=== PATIENT | female | born 1990 | race Caucasian/White ===

== ENCOUNTER 2017-05-17 05:50 | Emergency (ER) | payer MEDICAID ==
[2017-05-17] MEDS ORDERED: Acetaminophen 500 MG Tab PO ONE (06:05)
[2017-05-17] MEDS ORDERED: Ketorolac 30 MG/ML SDV IVPUSH ONE (06:05)
[2017-05-17] MEDS ORDERED: Sodium Chloride 0.9% 2.5 ML Syringe FLUSH PRN (06:05)
[2017-05-17] MEDS ORDERED: Sodium Chloride 0.9% 10 ML Syringe FLUSH PRN (06:05)
[2017-05-17] MEDS ORDERED: Sodium Chloride 0.9% 1,000 ML IV ONE (06:05)
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
[2017-05-17] MEDS ORDERED: cefTRIAXone 1 GM in Premix Bag 1 BAG IV ONE (06:40)
[2017-05-17 08:12] VITALS: BP 99/53
== END 2017-05-17 08:09 | disposition home or self-care (01) ==
LOC: MW.ED 05:50
DX: N39.0 Urinary tract infection, site not specified (principal); N12 Tubulo-interstitial nephritis, not specified as acute or chronic; T37.0X5A Adverse effect of sulfonamides, initial encounter; Z88.1 Allergy status to other antibiotic agents; Z79.899 Other long term (current) drug therapy; Z90.49 Acquired absence of other specified parts of digestive tract; Z98.890 Other specified postprocedural states
CPT/HCPCS: 36415; 80053; 81001; 83605; 85025; 87086; 96361; 96365; 96375; 99283; A9270; J0696; J1885; J7040; 99284

== ENCOUNTER 2017-11-19 08:15 | Day surgery (SDC) | payer MEDICAID ==
[2017-11-18 12:14] LABS: CHLORIDE,CL 104 mmol/L (98-110); SODIUM,NA 138 mmol/L (136-146)
[~2017-11-19 08:15] MED LIST: Lactated Ringers 1,000 ML IV SCH; Sodium Chloride 0.9% 10 ML Syringe FLUSH PRN; Sodium Chloride 0.9% 2.5 ML Syringe FLUSH PRN
[2017-11-19] MEDS ORDERED: Midazolam 1 MG/ML 2 ML SDV ONE (08:42)
[2017-11-19] MEDS ORDERED: Dexamethasone 4 MG/ML 5 ML MDV ONE (08:42)
[2017-11-19] MEDS ORDERED: Ondansetron 4 MG/2 ML SDV ONE (08:42)
[2017-11-19] MEDS ORDERED: diphenhydrAMINE 50 MG/ML SDV ONE (08:42)
[2017-11-19] MEDS ORDERED: Rocuronium 10 MG/ML 10 ML Syringe ONE (08:42)
[2017-11-19] MEDS ORDERED: Propofol 200 MG/20 ML SDV ONE (08:42)
[2017-11-19] MEDS ORDERED: fentaNYL 100 MCG/2 ML SDV ONE (08:42)
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
[2017-11-19] MEDS ORDERED: Octyl 2-Cyanoacrylate 1 Tube ONE (09:22)
[2017-11-19] MEDS ORDERED: HYDROmorphone 2 MG/ML SDV ONE (10:51)
[2017-11-19] MEDS ORDERED: Neostigmine Methylsulfate 1 MG/ML 5 ML Syringe ONE (11:06)
[2017-11-19] MEDS ORDERED: Glycopyrrolate 0.2 MG/ML SDV ONE (11:06)
[2017-11-19] MEDS ORDERED: Ketorolac 30 MG/ML SDV ONE (11:07)
[2017-11-19] MEDS ORDERED: Ketorolac 30 MG/ML SDV IVPUSH PRN (11:11)
[2017-11-19] MEDS ORDERED: Ketorolac 30 MG/ML SDV IVPUSH ONE (11:11)
[2017-11-19] MEDS ORDERED: Promethazine 25 MG/ML SDV IM PRN (11:11)
[2017-11-19] MEDS ORDERED: Morphine 4 MG/ML Syringe IVPUSH PRN (11:11)
[2017-11-19] MEDS ORDERED: Ondansetron 4 MG/2 ML SDV IVPUSH PRN (11:11)
[2017-11-19] MEDS ORDERED: Acetaminophen/oxyCODONE 325-5 MG Tab PO PRN ×2 (11:11)
[2017-11-19] MEDS ORDERED: Morphine 2 MG/ML Syringe IVPUSH PRN (11:11)
--- NOTE | 2017-11-19 11:16 | PCM.OPNOTE ---
- General Post-Op/Procedure Note Date of Surgery/Procedure: 11/19/17 Operative Procedure(s): Dignostic Laparoscopy, draning of R.ovarian cyst, and removal of IUD Pre Op Diagnosis: Pelvic pain Post-Op Diagnosis: Same Anesthesia Technique: General ET Tube Primary Surgeon: Justice Brown Intellectual Property Manager: Sue Crespo EBL in mLs: 50 Complications: None Condition: Good
--- NOTE | 2017-11-19 11:17 | PCM.DCSUM1 ---
Discharge Summary - Discharge Data Discharge Date: 11/19/17 Discharge Disposition: Home, Self-Care 01 Condition: Good - Patient Summary/Data Operative Procedure(s) Performed: Dignostic Laparoscopy, draning of R.ovarian cyst, and removal of IUD - Patient Instructions Diet: Usual Diet as Tolerated Activity: As Tolerated Driving: Do Not Drive Showering/Bathing: May Shower Wound/Incision Care: Keep Operative Site/Wound Site Clean and Dry Notify Provider of: Fever, Increased Pain - Discharge Plan Home Medications: Home Meds . [No Known Home Meds] 11/17/17 [History] - General Info Date of Service: 11/19/17 Functional Status: Reports: Pain Controlled - Review of Systems General: Reports: No Symptoms HEENT: Reports: No Symptoms Pulmonary: Reports: No Symptoms Cardiovascular: Reports: No Symptoms Gastrointestinal: Reports: No Symptoms Genitourinary: Reports: No Symptoms Musculoskeletal: Reports: No Symptoms Skin: Reports: No Symptoms Neurological: Reports: No Symptoms Psychiatric: Reports: No Symptoms - Patient Data Vitals - Most Recent: Last Vital Signs Temp 37.0 C 11/19/17 08:52 Pulse 60 11/19/17 08:52 Resp 16 11/19/17 08:59 BP 110/68 11/19/17 08:52 Pulse Ox 98 11/19/17 08:59 Weight - Most Recent: 73.028 kg Lab Results - Last 24 hrs: Laboratory Results - last 24 hr 11/18/17 11/18/17 11/18/17 Range/Units 11:44 11:44 11:44 WBC 4.44 (4.0-11.0) K/uL RBC 4.54 (4.30-5.90) M/uL Hgb 14.4 (12.0-16.0) g/dL Hct 42.2 (36.0-46.0) % MCV 93.0 (80.0-98.0) fL MCH 31.7 (27.0-32.0) pg MCHC 34.1 (31.0-37.0) g/dL RDW Std Deviation 42.4 (28.0-62.0) fl RDW Coeff of Brandy 13 (11.0-15.0) % Plt Count 201 (150-400) K/uL MPV 9.40 (7.40-12.00) fL Nucleated RBC % 0.0 /100WBC Nucleated RBCs # 0 K/uL Sodium 138 (136-146) mmol/L Potassium 4.5 (3.5-5.1) mmol/L Chloride 104 (98-110) mmol/L Carbon Dioxide 26 (21-31) mmol/L BUN 12 (6.0-23.0) mg/dL Creatinine 0.9 (0.6-1.5) mg/dL Est Cr Clr Drug Dosing 87.12 mL/min Estimated GFR (MDRD) > 60.0 ml/min Glucose 96 (60-110) mg/dL Calcium 9.3 (8.8-10.8) mg/dL HCG, Qual NEGATIVE (NEG) Blood Type Antibody Screen 11/18/17 Range/Units 11:44 WBC (4.0-11.0) K/uL RBC (4.30-5.90) M/uL Hgb (12.0-16.0) g/dL Hct (36.0-46.0) % MCV (80.0-98.0) fL MCH (27.0-32.0) pg MCHC (31.0-37.0) g/dL RDW Std Deviation (28.0-62.0) fl RDW Coeff of Brandy (11.0-15.0) % Plt Count (150-400) K/uL MPV (7.40-12.00) fL Nucleated RBC % /100WBC Nucleated RBCs # K/uL Sodium (136-146) mmol/L Potassium (3.5-5.1) mmol/L Chloride (98-110) mmol/L Carbon Dioxide (21-31) mmol/L BUN (6.0-23.0) mg/dL Creatinine (0.6-1.5) mg/dL Est Cr Clr Drug Dosing mL/min Estimated GFR (MDRD) ml/min Glucose (60-110) mg/dL Calcium (8.8-10.8) mg/dL HCG, Qual (NEG) Blood Type O POSITIVE Antibody Screen NEGATIVE Med Orders - Current: Current Medications Lactated Ringer's (Ringers, Lactated) 1,000 mls @ 500 mls/hr IV .BOLUS TED Last Admin: 11/19/17 08:42 Dose: 500 mls/hr Ketorolac Tromethamine (Toradol) 30 mg IVPUSH ONETIME ONE Stop: 11/19/17 11:12 Ketorolac Tromethamine (Toradol) 30 mg IVPUSH Q6H PRN PRN Reason: Pain (severe 7-10) Stop: 11/24/17 11:12 Morphine Sulfate (Morphine) 2 mg IVPUSH Q2H PRN PRN Reason: Pain (severe 7-10) Morphine Sulfate (Morphine) 4 mg IVPUSH Q2H PRN PRN Reason: Pain (severe 7-10) Ondansetron HCl (Zofran) 4 mg IVPUSH Q6H PRN PRN Reason: Nausea/Vomiting Oxycodone/Acetaminophen (Percocet 325-5 Mg) 1 tab PO Q4H PRN PRN Reason: Pain (moderate 4-6) Oxycodone/Acetaminophen (Percocet 325-5 Mg) 2 tab PO Q4H PRN PRN Reason: Pain (moderate 4-6) Promethazine HCl (Phenergan) 25 mg IM Q6H PRN PRN Reason: Nausea/Vomiting Sodium Chloride (Saline Flush) 10 ml FLUSH ASDIRECTED PRN PRN Reason: Keep Vein Open Sodium Chloride (Saline Flush) 2.5 ml FLUSH ASDIRECTED PRN PRN Reason: Keep Vein Open Discontinued Medications Dexamethasone (Dexamethasone) Confirm Administered Dose 20 mg .ROUTE .STK-MED ONE Stop: 11/19/17 08:43 Diphenhydramine HCl (Benadryl) Confirm Administered Dose 50 mg .ROUTE .STK-MED ONE Stop: 11/19/17 08:43 Fentanyl (Sublimaze) Confirm Administered Dose 200 mcg .ROUTE .STK-MED ONE Stop: 11/19/17 08:43 Glycopyrrolate (Robinul) Confirm Administered Dose 0.4 mg .ROUTE .STK-MED ONE Stop: 11/19/17 11:07 Hydromorphone HCl (Dilaudid) Confirm Administered Dose 2 mg .ROUTE .STK-MED ONE Stop: 11/19/17 10:52 Acetaminophen (Ofirmev) Confirm Administered Dose 100 mls @ as directed IV .STK- MED ONE Stop: 11/19/17 10:04 Ketorolac Tromethamine (Toradol) Confirm Administered Dose 30 mg .ROUTE .STK- MED ONE Stop: 11/19/17 11:08 Midazolam HCl (Versed 1 Mg/Ml) Confirm Administered Dose 2 mg .ROUTE .STK-MED ONE Stop: 11/19/17 08:43 Neostigmine Methylsulfate (Neostigmine) Confirm Administered Dose 5 mg .ROUTE .STK-MED ONE Stop: 11/19/17 11:07 Octyl Cyanoacrylate (Dermabond Advance) Confirm Administered Dose 1 applic .ROUTE .STK-MED ONE Stop: 11/19/17 09:23 Ondansetron HCl (Zofran) Confirm Administered Dose 4 mg .ROUTE .STK-MED ONE Stop: 11/19/17 08:43 Propofol (Diprivan 20 Ml) Confirm Administered Dose 200 mg .ROUTE .STK-MED ONE Stop: 11/19/17 08:43 Rocuronium [place] (Zemuron) Confirm Administered Dose 100 mg .ROUTE .STK-MED ONE Stop: 11/19/17 08:43 - Exam General: Reports: Alert, Oriented HEENT: Reports: Pupils Equal, Pupils Reactive, EOMI, Mucous Membr. Moist/[place] Neck: Reports: Supple Lungs: Reports: Clear to Auscultation, Normal Respiratory Effort Cardiovascular: Reports: Regular Rate, Regular Rhythm GI/Abdominal Exam: Normal Bowel Sounds, Soft, Non-Tender, No Organomegaly, No Distention, No Abnormal Bruit, No Mass, Pelvis Stable (Female) Exam: Normal External Exam, Normal Speculum Exam, Normal Bimanual Exam Rectal (Female) Exam: Normal Exam, Normal Rectal Tone Back Exam: Reports: Normal Inspection, Full Range of Motion Extremities: Normal Inspection, Normal Range of Motion, Non-Tender, No Pedal Edema, Normal Capillary Refill Skin: Reports: Warm, Dry, Intact Wound/Incisions: Reports: Healing Well Neurological: Reports: No New Focal Deficit Psy/Mental Status: Reports: Alert, Normal Affect, Normal Mood *Q Meaningful Use (DIS) - VTE *Q VTE Criteria *Q: - Stroke *Q Stroke Criteria *Q: - AMI *Q AMI Criteria *Q:
--- NOTE | 2017-11-19 12:09 | PCM.POSTAN ---
POST ANESTHESIA ASSESSMENT - MENTAL STATUS Mental Status: Alert, Oriented - RESPIRATORY Respiratory Status: Respiratory Rate WNL, Airway Patent, O2 Saturation Stable - CARDIOVASCULAR CV Status: Pulse Rate WNL, Blood Pressure Stable - GASTROINTESTINAL GI Status: No Symptoms - POST OP HYDRATION Hydration Status: Adequate & Stable
--- NOTE | 2017-11-19 12:10 | PCM48HPAN ---
Post Anesthesia Note - EVALUATION WITHIN 48HRS OF ANESTHETIC Vital Signs in Normal Range: Yes Patient Participated in Evaluation: Yes Respiratory Function Stable: Yes Airway Patent: Yes Cardiovascular Function Stable: Yes Hydration Status Stable: Yes Pain Control Satisfactory: Yes Nausea and Vomiting Control Satisfactory: Yes Mental Status Recovered: Yes
[2017-11-19 14:06] VITALS: BP 113/74
--- NOTE | 2017-11-19 17:35 | OR ---
SURGEON: Justice Brown MD DATE OF PROCEDURE: PREOPERATIVE DIAGNOSIS: Pelvic pain. POSTOPERATIVE DIAGNOSES: Pelvic pain plus right ovarian cyst. OPERATION PERFORMED: Multiple puncture, diagnostic laparoscopy, peritoneal lavage, and drainage of the right ovarian cyst and prior to that, removal of the IUD. PROCUREMENT ANALYST: ERICA Arredondo ANESTHESIA: General endotracheal intubation, Esperanza Holguin. ESTIMATED BLOOD LOSS: Less than 25 mL. COMPLICATIONS: None. FINDINGS: 3 to 5 cm right ovarian cyst. The entire pelvis is completely normal. There is no endometriosis. There is no adhesion. INDICATION FOR SURGERY: [place] referred to the admit note. PROCEDURE IN DETAIL: The patient was brought to the OR, properly identified. After adequate level of general anesthesia, patient was placed in lithotomy position, prepped and draped in sterile fashion as usual. Straight catheter was used to empty the bladder and the cervix was grabbed with single-tooth tenaculum, and the IUD is removed without any problem. Then, Hulka manipulator was placed in the uterus for manipulation, then operation shifted abdominally. Stab wound done beneath the umbilicus. The Veress needle was placed in the peritoneal cavity and that cavity insufflated 3.5 L of carbon dioxide. Then, utilizing the Visiport technique, 5 mm scope was entered beneath the umbilicus. Then, the patient was placed in steep Trendelenburg and two 5 mm trocars, one in the right and left. Iliac fossa was done under direct vision. In the inspection of the entire pelvis, the right ovary have a 3 x 5 cm clear cyst; otherwise, there is no endometriosis. The right tube is normal. The right pelvic sidewall, there is no evidence of endometriosis. The right uterosacral ligament, there is no evidence of endometriosis or any adhesion and shifting to the left side, the left uterosacral ligament is normal, the left pelvic sidewall is normal, the left ovary and tube were essentially normal. Inspecting the bladder flaps was completely and essentially is normal. It is felt that the only abnormality is that the small follicular cyst. I went ahead and drained the cyst without any problem. I inspected the appendix. Her appendix was normal. Satisfied with the finding, there is no MICROSTRATEGY ARCHITECT DEVELOPER pathology. The procedure ended. The air evacuated from the peritoneal cavity. The instrument and hardware were retrieved from the abdomen and the vagina, and the multiple laparoscopic incision was closed in layers. Instrument and sponge count was correct. The patient tolerated the procedure well and went to recovery room in stable general condition. LOUISE HARTMAN /[id number]
== END 2017-11-19 13:40 | disposition home or self-care (01) ==
LOC: MW.SDS 08:15
PROVIDERS: ATTEND Obstetrics & Gynecology
DX: N83.01 Follicular cyst of right ovary (principal); Z90.49 Acquired absence of other specified parts of digestive tract; Z90.89 Acquired absence of other organs; Z98.890 Other specified postprocedural states
CPT/HCPCS: 36415; 49322; 58301; 80048; 84703; 85027; 86850; 86900; 86901; A9270; J1100; J1170; J1200; J1885; J2250; J2270; J2405; J3010; J7120; 00840; 88300; J2704

== ENCOUNTER 2021-10-12 21:33 | Emergency (ER) | payer BC, MEDICAID ==
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
[2021-10-12] MEDS ORDERED: Acetaminophen/oxyCODONE 325-5 MG Tab PO ONE (21:46)
--- NOTE | 2021-10-13 00:01 | CT ---
Clinic INDICATION: Fell on ice. Hematoma. TECHNIQUE: Axial CT cuts performed skull base to the vertex. Comparison : 08/29/2016. FINDINGS: There is no intracranial mass, hemorrhage, infarction or contusion. There is no midline shift or transtentorial herniation. The calvarium is intact. The visualized paranasal sinuses and orbits appear normal. IMPRESSION: Negative study. Please note that all CT scans at this facility use dose modulation, iterative reconstruction, and/or weight-based dosing when appropriate to reduce radiation dose to as low as reasonably achievable. Dictated by Carlos Short MD @ 10/13/2021 12:00:20 AM (Electronically Signed)
[2021-10-13 04:44] VITALS: BP 132/90; PULSE 85
== END 2021-10-13 00:47 | disposition home or self-care (01) ==
LOC: MW.ED 21:33
DX: S00.03XA Contusion of scalp, initial encounter (principal); Z88.1 Allergy status to other antibiotic agents; W18.09XA Striking against other object with subsequent fall, initial encounter
CPT/HCPCS: 70450; 99283; A9270